=== PATIENT | male | born 1950 | race Caucasian/White ===

== ENCOUNTER → 2017-09-26 | Outpatient (CLI) | payer MEDICARE ==
[~2017-09-26] MED LIST: ASPI-764 PO; FLU60SYR30 IM ONLY; LOM PO; LOVA40TA89 PO; METO25TA23 PO; ONDA-153 SL; OXYC-865 PO; PRO25 PO; [UNRECOGNIZED DRUG - OTHER]
[2017-09-26 09:53] LABS: PLATELET COUNT, AUTOMATED 200 K/uL (150-450)
== END ==
LOC: LAB 09:30
PROVIDERS: ATTEND Internal Medicine
DX: E78.5 Hyperlipidemia, unspecified (principal); I25.10 Atherosclerotic heart disease of native coronary artery without angina pectoris; R10.9 Unspecified abdominal pain
CPT/HCPCS: 36415; 81001; 82040; 82150; 82247; 82310; 82374; 82435; 82565; 82947; 83690; 84075; 84132; 84155; 84295; 84443; 84450; 84460; 84520; 85025

== ENCOUNTER 2017-10-26 09:00 | Outpatient (RCR) | payer MEDICARE ==
--- NOTE | 2017-08-09 10:08 | SPEECH INITIAL EVALUATION ---
[*]INITIAL SPEECH THERAPY EVALUATION REPORT Patient Name: Omari Dominguez Date of Evaluation: 08-01-2017, 08-08-17 Patient : 1950 Clinician: Adelaide Mackenzie M.S., [facility]-BUNG REMOVER, Abner Brasher, [facility] Treatment Dx: Aphasia BACKGROUND The pt is a 66 year old male who is experiencing expressive and receptive language deficits secondary to his diagnosis of aphasia with an unknown origin. 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 The patient arrived to the evaluation with his , who aided in providing information regarding the patients case history. This ST evaluation aimed to further assess the patients strengths and weaknesses in receptive and expressive language. LANGUAGE The Quick Assessment of Aphasia is an informal aphasia assessment. The following subtests were administered with results reported: Quick Assessment of Aphasia Subtests Raw Scores (1-5 with 5 indicating best performance) Average percent correct for Subtest out of possible 100% Functional Level GRAPHIC (READING) (4 skills) Matches printed words Matches written words with pictures Reads single words aloud Follows written instruction 5 5 5 2 85% Ability to perform task is Moderately affected GRAPHIC (WRITING) (5 skills) Writes sentences Writes name of objects Writes to dictation Copies printed words Signs name 0 0 1 4 3 32% Ability to perform task is Severely affected The patient demonstrated strengths in reading and comprehending text at the word level. He demonstrated deficits in comprehending text at the sentence level ; however, he completed directions at sentence level given the auditory version of the direction. The patients writing skills are severely impacted. He demonstrates strengths in copying words, but requires additional support for writing the word independently. The ST presented a letter board to the patient with a visual field reduction. Given this support, the patient demonstrated more efficient and accurate writing. BNT [place] Naming Test The BNT is a neuropsychological assessment tool to measure confrontational word retrieval in individuals with aphasia or other language disturbance. The BNT short form was administered with the following results: Raw Score 1/15 independently, 3/15 phonemic cue, and 11/15 given multiple choice. The patient demonstrated the most success given written multiple choice options of each picture. When words appeared to be similar in appearance (e.g., uniform and unicorn) or semantically related (e.g., sphinx and pharaoh), the patient struggled with multiple choice options. During structured and nonstructured conversation, the patient frequently demonstrates instances of verbal paraphasias and perseverations on words. He does not demonstrate some awareness of these errors and attempts self- correction. The patients strength in using gesture improves his success in communicative exchange. COGNITION The [place]anger Cognitive Assessment (MoCA) was administered given a heavily modified format to adhere to expressive language deficits. The results are as follows: -MoCA Total Score (TS): 20/30 = mild cognitive impairment (MCI) -Cognitive Domains Demonstrating Deficits: visuospatial, naming, language, attention -Cognitive Domains Demonstrating Strength: Immediate recall, delayed recall, arithmetic, orientation Cognitive- Linguistic deficits impact swallow function/safety, or response to therapy: No Functional Communication Deficits: The patient presents with expressive communication that may impact safety and independence in the community, however , these deficits may not impact safety at home given the consistent support from his . SPEECH: Articulation of speech sounds at word, sentence, and conversational level is wnl. Reduced volume and increased rate of speech production reduce overall intelligibility to approximately 90% VOICE: within functional limits DYSPHAGIA: Patient denies oral, pharyngeal, and esophageal dysphagia symptoms at this time. SUMMARY COGNITION/LANGUAGE SUMMARY Cognitive Deficits: Mild deficits. Please see above for details FUNCTIONAL COMMUNICATION The patients functional communication may impact his safety and independence in the community, though the support of his reduces safety risks . During structured and nonstructured conversation, the patient frequently demonstrates instances of verbal paraphasias and perseverations on words. He does not demonstrate awareness of these errors and does not attempt self-correction. The patients strength in using gesture improves his success in communicative exchange. The patient demonstrated strengths in reading and comprehending text at the word level. He demonstrated deficits in comprehending text at the sentence level; however, he completed directions at sentence level given the auditory version of the direction. The patients writing skills are severely impacted. He demonstrates strengths in copying words, but requires additional support for writing the word independently. The ST presented a letter board to the patient with a visual field reduction. Given this support, the patient demonstrated more efficient and accurate writing. The patient carries a card for self-advocacy explaining that he has aphasia. This will continue to increase community awareness and understanding. The support from his aids in consistent practice and use of strategies to aid in expressive deficits as well as frequent psychosocial support to reduce the patients anxiety. An alternative/augmentative assessment will be conducted to determine appropriate system/device to support functional communication and a request for purchase will be submitted to insurance. RECOMMENDATIONS 1. ST 2x/wk to address expressive deficits and increase patient independence in the community. PROGNOSIS: Excellent. Patient demonstrates motivation and has excellent family support. PLAN OF CARE Short Term Goals 1. The patient will perform functional receptive language tasks to aid in daily IADLs at 90% given min assist. 2. The patient will perform everyday expressive language tasks using a mode of communication (e.g., gesture, speech, aided device, etc.) at 90% given min assist. 3. The patient will complete an AAC assessment to determine the most beneficial , functional, and efficient AAC system for successful daily communication. Intermediate Goal The patient will demonstrate functional communication with multimodal approach Thank you for this referral. Please call [phone] Adelaide Mackenzie M.S., CCC-BUNG REMOVER, Abner Brasher, [facility] Physician Signature Date MTDD
--- NOTE | 2017-09-11 17:23 | SLP PLAN OF CARE ---
SPEECH PATHOLOGY PROGRESS REPORT Progress Note Date: 09-07-2017 Clinician: Adelaide Mackenzie M.S., CCC-TOOL DISTRIBUTOR, Shy Marmolejo B.A., [facility] [place] Patient: Omari Dominguez (Sudhir) : 1950 The patient has been attending ST at [facility] 2/wk for a total of 10 visits. The patient continues to appear in general good health. Current POC The patient has been working on the following short term goals: 1. The patient will perform functional receptive language tasks to aid in daily IADLs at 90% given min assist. As of 09-11-17: Progressing. Patient is responding to functional questions with 80% across 10 sessions. Repetitions increase accuracy. 2. The patient will perform everyday expressive language tasks using a mode of communication (e.g., gesture, speech, aided device, etc.) at 90% given min assist. As of 09-11-17 Progressing. The patient is utilizing speech and gesture with min assist when expressing thoughts and ideas with 70% accuracy across 10 sessions. The patient is able to provide 2-3 descriptors to express himself. 3. The patient will complete an AAC assessment to determine the most beneficial , functional, and efficient AAC system for successful daily communication. As of 09-11-17 Progressing. The Pt has selected a [employer] MiniTalk dedicated AAC device. The process of acquiring this device has be initiated. A short trial period will be conducted prior to final selection and request to Medicare for payment. Additional required assessments will be conducted. SUMMARY Continue Current POC 2wk. The patient is progressing toward ST goals. The patient is maintaining his current level of communication and is preparing to add the use of a dedicated device. RECOMMENDATION Patient would benefit from continued ST to address above POC Thank you for referring this patient to [facility] [place], Speech- Language Pathology. Please call [phone] to contact the TOOL DISTRIBUTOR. Respectfully, Adelaide Mackenzie M.S., KAILEE-TOOL DISTRIBUTOR Physician Signature Date MTDD
--- NOTE | 2017-10-26 13:07 | SLP PLAN OF CARE ---
[*]SPEECH PATHOLOGY PROGRESS REPORT Progress Note Date: 10-24-2017 Clinician: Adelaide Mackenzie M.S., CCC-ARTIST AND REPERTOIRE MANAGER, Shy Marmolejo B.A., [facility] [place] Patient: Omari Dominguez (Sudhir) : 1950 The patient has been attending ST at [facility] 2/wk for a total of 10 visits. The patient continues to appear in general good health. Current POC The patient has been working on the following short term goals: 1. The patient will perform functional receptive language tasks to aid in daily IADLs at 90% given min assist. As of 10-24-17: Progressing. Patient is responding to functional questions with 80% accuracy across 10 sessions. The patient utilizes speech and the SGD to respond and benefits from questions being asked in a simplified form and repetitions increase accuracy. 2. The patient will perform everyday expressive language tasks using a mode of communication (e.g., gesture, speech, aided device, etc.) at 90% given min assist. As of 10-24-17 Progressing. The patient is utilizing speech, gesture, SGD and low tech memory aids with min assist when expressing thoughts and ideas with 75 % accuracy across 10 sessions. T 3. The patient will complete an AAC assessment to determine the most beneficial , functional, and efficient AAC system for successful daily communication. As of 10-24-17 Met. Discontinue. The Pt has selected a [employer] MiniTalk dedicated AAC device and has completed the trial period for the device. The temporary device is being sent back and the permanent device will be shipped upon approval. The device settings organized on the temporary device will be transferred to the new device Updated POC 1. The patient will perform functional receptive language tasks to aid in daily IADLs at 90% given min assist. 2. The patient will perform everyday expressive language tasks using a mode of communication (e.g., gesture, speech, aided device, etc.) at 90% given min assist. 3. Pt will navigate the SGD with graded mod to independent assist to participate in functional communication tasks with 90% accuracy as reported by the patient and the ARTIST AND REPERTOIRE MANAGER. SUMMARY The plan of care has been updated to reflect use of the selected AAC- Speech Generating Device (SGD). The patient is progressing toward two of his ST goals and has completed the process to identify the appropriate AAC device. The patient is maintaining his current level of communication through speech, gesture and use of the AAC device. RECOMMENDATION The patient would benefit from continued ST 2x/12wk to address above POC Thank you for referring this patient to , Speech- Language Pathology. Please call [phone] to contact the ARTIST AND REPERTOIRE MANAGER. Respectfully, Adelaide Mackenzie M.S., [facility]-ARTIST AND REPERTOIRE MANAGER Physician Signature Date MTDD
== END 2017-10-30 ==
LOC: ST 09:00
PROVIDERS: ATTEND Internal Medicine
DX: R47.01 Aphasia (principal)

== ENCOUNTER 2017-12-28 09:00 | Outpatient (RCR) | payer MEDICARE ==
--- NOTE | 2017-10-31 14:07 | SLP PLAN OF CARE ---
SPEECH PATHOLOGY PROGRESS REPORT Progress Note Date: 10-31-2017 Clinician: Zandra Lunsford M.S., CCC-LABEL DESIGNER, Shy Marmolejo B.A., [facility] [place] Patient: Omari Dominguez (Sudhir) : 1950 The patient has been attending ST at [facility] 2/wk for a total of 21 visits. The patient continues to appear in general good health. Pt was discharged by the billing department, treatment will continue with POC from 10/24/17. Current POC The patient has been working on the following short term goals: 1. The patient will perform functional receptive language tasks to aid in daily IADLs at 90% given min assist. 2. The patient will perform everyday expressive language tasks using a mode of communication (e.g., gesture, speech, aided device, etc.) at 90% given min assist. 3. Pt will navigate the SGD with graded mod to independent assist to participate in functional communication tasks with 90% accuracy as reported by the patient and the LABEL DESIGNER. SUMMARY POC from 10/24/17 will continue. The patient is maintaining his current level of communication through speech, gesture and use of the AAC- Speech Generating Device (SGD). RECOMMENDATION The patient would benefit from continued ST 2x/12wk to address above POC Thank you for referring this patient to [facility], Speech- Language Pathology. Please call [phone] to contact the LABEL DESIGNER. Respectfully, Zandra Lunsford M.S., [facility])-LABEL DESIGNER [*] MTDD
--- NOTE | 2017-12-21 14:59 | SLP PLAN OF CARE ---
SPEECH PATHOLOGY PROGRESS REPORT , 10th Visit Progress Note Date: 12-21-2017 Clinician: Zandra Lunsford M.S., CCC-TUBE MACHINE OPERATOR HELPER Patient: Omari Dominguez (Sudhir) : 1950 The patient has been attending ST at [facility] 2/wk for a total of 30 visits. The patient continues to appear in general good health. Current POC The patient has been working on the following short term goals: 1. The patient will perform functional receptive language tasks to aid in daily IADLs at 90% given min assist. Progressing 2. The patient will perform everyday expressive language tasks using a mode of communication (e.g., gesture, speech, aided device, etc.) at 90% given min assist. Progressing 3. Pt will navigate the SGD with graded mod to independent assist to participate in functional communication tasks with 90% accuracy as reported by the patient and the TUBE MACHINE OPERATOR HELPER. Progressing SUMMARY POC will continue. The patient is maintaining his current level of communication through speech, gesture and use of the AAC- Speech Generating Device (SGD). RECOMMENDATION The patient would benefit from continued ST 2x/12wk to address above POC Thank you for referring this patient to [facility], Speech- Language Pathology. Please call [phone] to contact the TUBE MACHINE OPERATOR HELPER. Respectfully, Adelaide Mackenzie M.S., CCC-TUBE MACHINE OPERATOR HELPER MTDD
== END 2017-12-28 18:00 | disposition home or self-care (01) ==
LOC: ST 09:00
PROVIDERS: ATTEND Internal Medicine
DX: R47.01 Aphasia (principal)

== ENCOUNTER → 2018-11-09 | Outpatient (CLI) | payer MEDICARE ==
[~2018-11-09] MED LIST changes: +CITA-137 PO; +DONE5TAB29 PO; +DONE5TAB36 PO; +FLU180SY11 IM; +PNEU0.5D3 IM
== END ==
LOC: LAB 15:18
PROVIDERS: ATTEND Surgery
DX: C44.329 Squamous cell carcinoma of skin of other parts of face (principal)
CPT/HCPCS: 88305